=== PATIENT | male | born 1950 | race Caucasian/White ===

== ENCOUNTER → 2021-06-21 11:24 | Outpatient (CLI) | payer MEDICARE, OTHER, SELFPAY ==
[2021-06-21 13:19] LABS: COVID19 -Nasal RAPID Negative (Negative)
== END ==
PROVIDERS: PCP Specialist; Visit Provider Surgery
DX: Z20.822 Contact with and (suspected) exposure to COVID-19 (principal); Z01.812 Encounter for preprocedural laboratory examination
CPT/HCPCS: 87635; C9803

== ENCOUNTER 2021-06-22 06:37 | Day surgery (SDC) | payer MEDICARE, OTHER, SELFPAY ==
[2021-06-18 13:01] VITALS: BMI 31.6
[2021-06-22] VITALS (8 sets, daily range): BP systolic 114–188; BP diastolic 74–94; PULSE 70–85; RESP 14–16; TEMP 36.4–36.8; O2SAT 93–98; BMI 31.6
--- NOTE | 2021-06-22 | PATH_ITS ---
[facility] Accession Number: [id number] . 01 Material submitted: . peritoneum - PERITONEAL NODULE . 02 Diagnosis: Peritoneal Nodule, Excision: Features most consistent with fat necrosis with benign calcifications. No evidence of neoplasm. V 06/25/2021 1141 Local . 02 Electronically signed: . Finesse Gil MD, PhD, Pathologist NPI- [id number] . 01 Gross description: . PERITONEAL NODULE: Received in formalin is 1 fragment of almonte soft tissue measuring 1.1 x 0.7 x 0.6 cm. Tissue is inked. Specimen is sectioned and submitted in its entirety in 1 cassette. /DEREK 06/23/2021 1935 Local . 02 Pathologist provided ICD-10: K43.9 . 02 CPT . 484255 Specimen Comment: A courtesy copy of this report has been sent to [phone] Performed at: 01 [facility] [address] [place] [id number] MD Yann Parr MD Phone: [phone] Performed at: 02 [facility] [address] [place], [place] [id number] MD Margie Salas MD Phone: [phone]
[2021-06-22] MEDS: LACTATED RINGERS 1,000 ML 42 ML IV ×2 (07:38→09:05)
--- NOTE | 2021-06-22 07:45 | PM.HP.1 ---
History of Present Illness History of Present Illness Date Patient Seen: 06/22/21 Time Patient Seen: 07:46 Chief complaint: SDC Narrative: Yovani is here for his hernia repair. Please see the office note from February 18, 2021. He states his hernia has gotten somewhat larger since then and sometimes can be rather uncomfortable. He continues to be reducible when he lies down. Patient History Medical History (Updated 06/18/21 @ 13:03 by Melissa Bradford RN) Diabetes Hernia HTN (hypertension) Surgical History (Updated 06/18/21 @ 13:03 by Melissa Bradford RN) History of hernia repair (~1970) Family & Social History Social History: household members spouse lives independently Yes Tobacco & Substance use: Smoking Status Never smoker alcohol intake current alcohol intake frequency 0-2 drinks per day Substance Use Type does not use Meds Home Medications and Allergies Home Medications Medication Instructions Recorded Confirmed Type losartan 100 mg tablet 100 mg PO DAILY 02/18/21 06/18/21 History acetylcysteine 600 mg tablet (NAC) 600 mg PO DAILY 06/18/21 06/18/21 History amlodipine 10 mg tablet 10 mg PO DAILY 06/18/21 06/18/21 History carvedilol 6.25 mg tablet 6.25 mg PO DAILY 06/18/21 06/18/21 History niacinamide 500 mg tablet 500 mg PO DAILY 06/18/21 06/18/21 History spironolactone 25 mg tablet 25 mg PO DAILY 06/18/21 06/18/21 History Allergies Allergy/AdvReac Type Severity Reaction Status Date / Time No Known Drug Allergies Allergy Unverified 02/18/21 13:26 Exam Vital Signs (past 8 hours): - 06/22/21 07:33 Temperature 98.2 F Pulse Rate 73 Respiratory Rate 16 Blood Pressure 188/94 H Pulse Oximetry 98 Oxygen Delivery Method Room Air Const General: comfortable Resp Effort & Inspection: normal respiratory effort GI Other: Abdomen soft There is a moderate-sized supraumbilical hernia Assessment & Plan Assessment and plan (1) Supraumbilical hernia: Status: Acute Plan Plan for an open supraumbilical hernia repair with mesh. We reviewed the surgery and the risks and benefits and he would like to proceed. COVID-19 COVID-19 status: Negative Result date/Date tested (Pos, Neg/Pending): 06/21/21 Time Spent With Patient Critical Care time: I spent a total of [] minutes of critical care time on this patient's care today; this time is exclusive of procedural time.
[2021-06-22] MEDS: CEFAZOLIN 2 GM/20 ML SYRINGE IV (08:03)
--- NOTE | 2021-06-22 08:12 | SUR.OPER ---
Supine on padded OR bed, head on pillow, arms secured on padded arm boards at <90 degrees abduction, legs uncrossed, safety belt at thigh, tape over blanket over lower legs.
[2021-06-22] MEDS: LIDOCAINE 1% W/EPI 20 ML INJ (08:17)
[2021-06-22] MEDS: BUPIVACAINE 0.25% (PF) VIAL 30 ML INJ (08:19)
--- NOTE | 2021-06-22 09:22 | P.OP_ITS ---
Operative Date/Time/Diagnoses Date of procedure: 06/22/21 Time of procedure: 09:22 Pre-op diagnosis: Supraumbilical and umbilical hernia Post-op diagnosis: same Procedure & Clinicians Procedure: Open ventral hernia repair with mesh Same procedure as scheduled: Yes Surgeon: Tunde Storey Operative Notes Procedure in detail: Ancef was administered. The patient was brought to the operating room, placed on the table in the supine position and general endotracheal anesthesia was induced. The abdomen was prepped and draped in the usual fashion. A time-out was performed. A 7 cm transverse incision was made just above the umbilicus which was where the hernia was palpable. Dissection was carried down to the hernia sac. The hernia sac was freed from the fascial ring and allowed to drop back into the abdomen. A finger was inserted through the fascial defect and an umbilical hernia was discovered just inferior to the primary defect. The thin fascial bridge between the supraumbilical and umbilical hernia was divided so as to create 1 defect. Small omental tissue protruded through the umbilical defect and was allowed to drop back into the abdomen. Tissue was cleared from the fascial ring and Marcaine was injected into the planes deep and superficial to the fascia. The fascia was then closed longitudinally with multiple interrupted 0 Ethibond sutures to include the anterior sheath as well as the posterior sheath around the umbilicus. The subcutaneous adipose tissue was cleared off of the anterior sheath circumferentially about 2 cm in each direction. A piece of polypropylene mesh was trimmed to fit over the fascial closure and secured with Tisseel. Once the Tisseel was dried the subcutaneous adipose tissue was closed with interrupted 3-0 Vicryl sutures. The skin was closed with multiple interrupted 3-0 Vicryl dermal sutures followed by a running 4 Monocryl subc uticular closure. Steri-Strips were applied and an abdominal binder was applied. EBL: 15 mL Post-operative Condition: stable Disposition: PACU
[2021-06-22] MEDS: OXYCODONE IR 5 MG TABLET PO (09:46)
== END 2021-06-22 10:15 | disposition home or self-care (01) ==
PROVIDERS: PCP Specialist; Referring Provider Surgery; Visit Provider Surgery
PROC: (CPT 49560; principal; 2021-06-22 07:45)
DX: K43.9 Ventral hernia without obstruction or gangrene (principal); I10 Essential (primary) hypertension; E11.9 Type 2 diabetes mellitus without complications
CPT/HCPCS: 49560; 49568; J0690; J1885; J2405; J2704; J3010